=== PATIENT | male | born 1945 | race Caucasian/White ===

== ENCOUNTER 2020-02-29 16:00 | Emergency (ER) | payer MEDICARE, SELFPAY ==
[2020-02-29 16:10] VITALS: BP 151/82; PULSE 112; RESP 16; TEMP 36.6; O2SAT 99
[2020-02-29] MEDS: TETANUS,DIPHTHERIA,AC PERTUSSIS ADULT (0.5 ML) BOOSTRIX IM (17:08)
--- NOTE | 2020-02-29 17:21 | PC.NURSE ---
Pt resting in chair. Awaiting laceration repair. [facility]PA made aware supplies at bedside for laceration repair.
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
[2020-02-29 20:10] VITALS: BP 149/89; PULSE 87; RESP 17; O2SAT 100
[2020-02-29] MEDS: traMADol HCL (*CRX) 50 MG TABLET PO (20:10)
== END 2020-02-29 20:15 | disposition home or self-care (01) ==
PROVIDERS: Emergency Provider Emergency Medicine
DX: S61.412A Laceration without foreign body of left hand, initial encounter (principal); S80.212A Abrasion, left knee, initial encounter; V18.4XXA Pedal cycle driver injured in noncollision transport accident in traffic accident, initial encounter; Y93.55 Activity, bike riding; Z23 Encounter for immunization
CPT/HCPCS: 12002; 90471; 90715; 99283; A9270